=== PATIENT | male | born 1975 | race Caucasian/White ===

== ENCOUNTER 2024-02-01 15:38 | Inpatient (IN) | payer OTHER, BC ==
--- NOTE | 2024-02-01 19:14 | ED ---
Psych HPI - General Chief Complaint: Psychiatric Symptoms Stated Complaint: petition Time Seen by Provider: 02/01/24 15:50 Source: patient, RN notes reviewed Mode of arrival: ambulatory - History of Present Illness Initial Comments: 48-year-old male brought in for evaluation. He is suffering from suicidal thoughts and ideation. He is here on petition with an extensive note. The patient did initially deny any of this however it is well-documented. MD Complaint: suicidal ideation, feels depressed - Related Data Home Medications Medication Instructions Recorded Confirmed Aspirin EC [Ecotrin Low Dose] 81 mg PO DAILY 02/01/24 02/01/24 Atorvastatin [Lipitor] 40 mg PO DAILY 02/01/24 02/01/24 Fenofibrate Nanocrystallized 48 mg PO DAILY 02/01/24 02/01/24 [Fenofibrate] Lisinopril-Hctz 20-12.5 mg 1 tab PO DAILY 02/01/24 02/01/24 [Zestoretic 20-12.5] Pantoprazole [Protonix] 40 mg PO AC-BRKFST 02/01/24 02/01/24 Allergies Allergy/AdvReac Type Severity Reaction Status Date / Time No Known Allergies Allergy Verified 02/01/24 18:12 Review of Systems ROS Statement: Those systems with pertinent positive or pertinent negative responses have been documented in the HPI. ROS Other: All systems not noted in ROS Statement are negative. Past Medical History Past Medical History: Hypertension History of Any Multi-Drug Resistant Organisms: None Reported Past Surgical History: Hernia Repair Additional Past Surgical History / Comment(s): chest sx to remove a growth Past Psychological History: No Psychological Hx Reported Smoking Status: Never smoker Past Alcohol Use History: None Reported Past Drug Use History: None Reported General Exam - General Exam Comments Initial Comments: This is a well-developed well-nourished awake alert oriented x 4 male General appearance: anxious Head exam: Present: atraumatic, normocephalic, normal inspection Eye exam: Present: normal appearance, PERRL, EOMI. Absent: scleral icterus, conjunctival injection, periorbital swelling ENT exam: Present: normal exam, mucous membranes moist Neck exam: Present: normal inspection. Absent: tenderness, meningismus, lymphadenopathy Respiratory exam: Present: normal lung sounds bilaterally. Absent: respiratory distress, wheezes, rales, rhonchi, stridor Cardiovascular Exam: Present: regular rate, normal rhythm, normal heart sounds. Absent: systolic murmur, diastolic murmur, rubs, gallop, clicks GI/Abdominal exam: Present: soft, normal bowel sounds. Absent: distended, tenderness, guarding, rebound, rigid Extremities exam: Present: normal inspection, full ROM, normal capillary refill. Absent: tenderness, pedal edema, joint swelling, calf tenderness Back exam: Present: normal inspection Neurological exam: Present: alert, oriented X3, CN II-XII intact Psychiatric exam: Present: depressed, anxious, suicidal ideation Skin exam: Present: warm, dry, intact, normal color. Absent: rash Course Vital Signs 02/01/24 15:47 Temperature 98.5 F Pulse Rate 85 Respiratory 18 Rate Blood Pressure 148/92 O2 Sat by Pulse 96 Oximetry Medical Decision Making - Medical Decision Making Patient was evaluated by the EPS service and will be a voluntary admission. Was pt. sent in by a medical professional or institution (, PA, PRODUCT SUPPORT ANALYST, urgent care, hospital, or retirement...) When possible be specific @ -No Did you speak to anyone other than the patient for history (EMS, parent, family, police, friend...)? What history was obtained from this source @ -No Did you review nursing and triage notes (agree or disagree)? Why? @ -I reviewed and agree with nursing and triage notes Were old charts reviewed (outside hosp., previous admission, EMS record, old EKG, old radiological studies, urgent care reports/EKG's, retirement records)? Report findings @ -No old charts were reviewed Differential Diagnosis (chest pain, altered mental status, abdominal pain women, abdominal pain men, vaginal bleeding, weakness, fever, dyspnea, syncope, headache, dizziness, GI bleed, back pain, seizure, CVA, palpatations, mental health, musculoskeletal)? @ -Bipolardisorder, major depression EKG interpreted by me (3pts min.). @ -Not Indicated X-rays interpreted by me (1pt min.). @ -None done CT interpreted by me (1pt min.). @ -None done U/S interpreted by me (1pt. min.). @ -None done What testing was considered but not performed or refused? (CT, X-rays, U/S, labs)? Why? @ -None What meds were considered but not given or refused? Why? @ -None Did you discuss the management of the patient with other professionals (professionals i.e. , PA, PRODUCT SUPPORT ANALYST, lab, RT, psych nurse, psychotherapist social worker, dean of admissions, teacher, light armored reconnaissance officer, renal case manager)? Give summary @ -No Was smoking cessation discussed for >3mins.? @ -No Was critical care preformed (if so, how long)? @ -No Were there social determinants of health that impacted care today? How? (Homelessness, low income, unemployed, alcoholism, drug addiction, transportation, low edu. Level, literacy, decrease access to med. care, intermediate, rehab)? @ -No Was there de-escalation of care discussed even if they declined (Discuss DNR or withdrawal of care, Hospice)? DNR status @ -No What co-morbidities impacted this encounter? (DM, HTN, Smoking, COPD, CAD, Cancer, CVA, ARF, Chemo, Hep., AIDS, mental health diagnosis, sleep apnea, morbid obesity)? @ -HTN Was patient admitted / discharged? Hospital course, mention meds given and route, prescriptions, significant lab abnormalities, going to OR and other pertinent info. @ -Hospital course was admitted to this facility Undiagnosed new problem with uncertain prognosis? @ -No Drug Therapy requiring intensive monitoring for toxicity (Heparin, Nitro, Insulin, Cardizem)? @ -No Were any procedures done? @ -No Diagnosis/symptom? @ -[Depression, suicidal ideation Acute, or Chronic, or Acute on Chronic? @ -Acute Uncomplicated (without systemic symptoms) or Complicated (systemic symptoms)? @ -Default Side effects of treatment? @ -No Exacerbation, Progression, or Severe Exacerbation? @ -No Poses a threat to life or bodily function? How? (Chest pain, [place], [place], pneumonia, PE, COPD, DKA, ARF, appy, cholecystitis, CVA, Diverticulitis, Homicidal, Suicidal, threat to staff... and all critical care pts) @ -Yes - Lab Data Lab Results 02/01/24 Range/Units 18:11 SARS-CoV-2 (PCR) Not Detected (Not Detectd) Disposition Clinical Impression: Depression, Suicidal ideation Disposition: TRANSFER TO PSYCH HOSP/UNIT Condition: Fair Referrals: None,Stated [Primary Care Provider] - 1-2 days Time of Disposition: 18:30 Decision Date: 02/01/24 Decision Time: 18:30
[2024-02-01 21:46] LABS: Amphetamine Screen,Urine Not Detected (NotDetected); Barbiturate Screen,Urine Not Detected (NotDetected); Benzodiazepines Screen,Urine Not Detected (NotDetected); Cocaine Screen,Urine Not Detected (NotDetected); Methadone Screen, Urine Not Detected (NotDetected); Opiate Screen,Urine Not Detected (NotDetected); Oxycodone Screen, Urine Not Detected (NotDetected); Phencyclidine Screen,Urine Not Detected (NotDetected); Tricyclic Antidepressant,Urine Not Detected (NotDetected); Urn Cannabinoid Scrn Not Detected (NotDetected)
[2024-02-01] MEDS ORDERED: LORazepam 2 MG/ML INJ IM PRN (21:54)
[2024-02-01] MEDS ORDERED: MAG HYDROX/AL HYDROX/SIMETH 355 ML BOTTLE PO PRN (21:54)
[2024-02-01] MEDS ORDERED: LORazepam 1 MG TAB PO PRN (21:54)
[2024-02-01] MEDS ORDERED: traZODone HCL 100 MG TAB PO PRN (21:54)
[2024-02-01] MEDS ORDERED: MAGNESIUM HYDROXIDE 2,400 MG/30 ML CUP PO PRN (21:54)
[2024-02-02 01:45] LABS: Appearance,Urine Clear (Clear); Bilirubin,Urine Negative (Negative); Blood,Urine Negative (Negative); Color,Urine Light Yellow; Glucose,Urine (UA) Negative (Negative); Ketones,Urine Negative (Negative); Leukocyte Esterase,Urine Negative (Negative); Nitrite,Urine Negative (Negative); PH, Urine 5.5 (5.0-8.0); Protein,Urine Negative (Negative); Specific Gravity,Urine 1.027 (1.001-1.035); Urobilinogen,Urine <2.0 mg/dL (<2.0)
[2024-02-02] MEDS: LISINOPRIL-HCTZ 20-12.5 MG 1 EACH TAB PO SCH (08:22)
[2024-02-02] MEDS: ASPIRIN 81 MG PO SCH (08:22)
[2024-02-02] MEDS: ATORVASTATIN 40 MG TAB PO SCH (08:22)
[2024-02-02] MEDS: FENOFIBRATE 54 MG TAB PO SCH (08:22)
[2024-02-02] MEDS: PANTOPRAZOLE 40 MG TABLET PO SCH (09:27)
[2024-02-02 11:30] LABS: Basophils % (A) 0 %; Eosinophils # (A) 0.1 k/uL (0-0.7); Eosinophils % (A) 1 %; HCT 46.5 % (39.0-53.0); HGB 15.4 gm/dL (13.0-17.5); Lymphocytes # (A) 1.9 k/uL (1.0-4.8); Lymphocytes % (A) 28 %; MCH 28.7 pg (25.0-35.0); MCHC 33.2 g/dL (31.0-37.0); MCV 86.3 fL (80.0-100.0); Mean Platelet Volume 7.4; Monocytes # (A) 0.4 k/uL (0-1.0); Monocytes % (A) 6 %; Neutrophils # (A) 4.2 k/uL (1.3-7.7); Neutrophils % (A) 62 %; Platelet Count 317 k/uL (150-450); RBC 5.39 m/uL (4.30-5.90); RDW 13.6 % (11.5-15.5); WBC 6.8 k/uL (3.8-10.6)
[2024-02-02 11:31] LABS: ALT 58 U/L (4-49); AST 49 U/L (17-59); African American GFR (CKD) >90 (>60 ml/min/1.73 sqM); Albumin 4.9 g/dL (3.5-5.0); Alkaline Phosphatase 60 U/L (38-126); Anion Gap 11 mmol/L; Blood Urea Nitrogen 13 mg/dL (9-20); Calcium 9.9 mg/dL (8.4-10.2); Carbon Dioxide 23 mmol/L (22-30); Chloride 107 mmol/L (98-107); Glucose 112 mg/dL (74-99); Non-African American GFR(CKD) >90 (>60 ml/min/1.73 sqM); Potassium 4.5 mmol/L (3.5-5.1); Sodium 141 mmol/L (137-145); Total Bilirubin 0.7 mg/dL (0.2-1.3); Total Protein 7.5 g/dL (6.3-8.2)
[2024-02-02] MEDS: IBUPROFEN 600 MG TAB PO PRN (15:00)
[2024-02-02 18:47] LABS: Chol/HDL Ratio 4.37 Ratio; LDL Cholesterol,Calculated 99.5 mg/dL (0.0-131.0)
--- NOTE | 2024-02-03 17:21 | P.HP ---
Psychiatric H&P - . H&P Date: 02/03/24 History & Physical: Allergies Allergy/AdvReac Type Severity Reaction Status Date / Time No Known Allergies Allergy Verified 02/01/24 23:41 Vital Signs Temp 98.4 F 02/03/24 06:34 Pulse 81 02/03/24 08:27 Resp 16 02/03/24 06:34 BP 135/84 02/03/24 08:27 Pulse Ox 94 L 02/03/24 06:34 FiO2 Laboratory Last Values WBC 6.8 k/uL (3.8-10.6) 02/02/24 10:06 RBC 5.39 m/uL (4.30-5.90) 02/02/24 10:06 Hgb 15.4 gm/dL (13.0-17.5) 02/02/24 10:06 Hct 46.5 % (39.0-53.0) 02/02/24 10:06 MCV 86.3 fL (80.0-100.0) 02/02/24 10:06 MCH 28.7 pg (25.0-35.0) 02/02/24 10:06 MCHC 33.2 g/dL (31.0-37.0) 02/02/24 10:06 RDW 13.6 % (11.5-15.5) 02/02/24 10:06 Plt Count 317 k/uL (150-450) 02/02/24 10:06 MPV 7.4 02/02/24 10:06 Neutrophils % 62 % 02/02/24 10:06 Lymphocytes % 28 % 02/02/24 10:06 Monocytes % 6 % 02/02/24 10:06 Eosinophils % 1 % 02/02/24 10:06 Basophils % 0 % 02/02/24 10:06 Neutrophils # 4.2 k/uL (1.3-7.7) 02/02/24 10:06 Lymphocytes # 1.9 k/uL (1.0-4.8) 02/02/24 10:06 Monocytes # 0.4 k/uL (0-1.0) 02/02/24 10:06 Eosinophils # 0.1 k/uL (0-0.7) 02/02/24 10:06 Basophils # 0.0 k/uL (0-0.2) 02/02/24 10:06 Sodium 141 mmol/L (137-145) 02/02/24 10:06 Potassium 4.5 mmol/L (3.5-5.1) 02/02/24 10:06 Chloride 107 mmol/L (98-107) 02/02/24 10:06 Carbon Dioxide 23 mmol/L (22-30) 02/02/24 10:06 Anion Gap 11 mmol/L 02/02/24 10:06 BUN 13 mg/dL (9-20) 02/02/24 10:06 Creatinine 0.77 mg/dL (0.66-1.25) 02/02/24 10:06 Est GFR (CKD-EPI)AfAm >90 (>60 ml/min/1.73 sqM) 02/02/24 10:06 Est GFR (CKD-EPI)NonAf >90 (>60 ml/min/1.73 sqM) 02/02/24 10:06 Glucose 112 mg/dL (74-99) H 02/02/24 10:[address] Glu mg/dL 137 mg/dL 02/02/24 10:06 Hemoglobin A1c 6.4 % (<=6.0) H 02/02/24 10:06 Calcium 9.9 mg/dL (8.4-10.2) 02/02/24 10:06 Total Bilirubin 0.7 mg/dL (0.2-1.3) 02/02/24 10:06 AST 49 U/L (17-59) 02/02/24 10:06 ALT 58 U/L (4-49) H 02/02/24 10:06 Alkaline Phosphatase 60 U/L (38-126) 02/02/24 10:06 Total Protein 7.5 g/dL (6.3-8.2) 02/02/24 10:06 Albumin 4.9 g/dL (3.5-5.0) 02/02/24 10:06 Triglycerides 162.00 mg/dL (0.00-149.00) H 02/02/24 10:06 Cholesterol 171.00 mg/dL (0.00-200.00) 02/02/24 10:06 LDL Cholesterol, Calc 99.5 mg/dL (0.0-131.0) 02/02/24 10:06 VLDL Cholesterol, Calc 32.40 mg/dL (5.00-40.00) 02/02/24 10:06 HDL Cholesterol 39.10 mg/dL (40.00-60.00) L 02/02/24 10:06 Cholesterol/HDL Ratio 4.37 Ratio 02/02/24 10:06 TSH 1.680 mIU/L (0.465-4.680) 02/02/24 10:06 Urine Color Light Yellow 02/01/24 18:11 Urine Appearance Clear (Clear) 02/01/24 18:11 Urine pH 5.5 (5.0-8.0) 02/01/24 18:11 Ur Specific [place] 1.027 (1.001-1.035) 02/01/24 18:11 Urine Protein Negative (Negative) 02/01/24 18:11 Urine Glucose (UA) Negative (Negative) 02/01/24 18:11 Urine Ketones Negative (Negative) 02/01/24 18:11 Urine Blood Negative (Negative) 02/01/24 18:11 Urine Nitrite Negative (Negative) 02/01/24 18:11 Urine Bilirubin Negative (Negative) 02/01/24 18:11 Urine Urobilinogen <2.0 mg/dL (<2.0) 02/01/24 18:11 Ur Leukocyte Esterase Negative (Negative) 02/01/24 18:11 Urine Opiates Screen Not Detected (NotDetected) 02/01/24 18:11 Ur Oxycodone Screen Not Detected (NotDetected) 02/01/24 18:11 Urine Methadone Screen Not Detected (NotDetected) 02/01/24 18:11 Ur Barbiturates Screen Not Detected (NotDetected) 02/01/24 18:11 U Tricyclic Antidepress Not Detected (NotDetected) 02/01/24 18:11 Ur Phencyclidine Scrn Not Detected (NotDetected) 02/01/24 18:11 Ur Amphetamines Screen Not Detected (NotDetected) 02/01/24 18:11 U Methamphetamines Scrn Not Detected (NotDetected) 02/01/24 18:11 U Benzodiazepines Scrn Not Detected (NotDetected) 02/01/24 18:11 Urine Cocaine Screen Not Detected (NotDetected) 02/01/24 18:11 U Marijuana (THC) Screen Not Detected (NotDetected) 02/01/24 18:11 SARS-CoV-2 (PCR) Not Detected (Not Detectd) 02/01/24 18:11 02/03/24 17:20 Psychiatric Evaluation Identifying Data: Mr. Holly is a 48 years old, single, white male, who lives in [place], [place] Chief Complaint: Veneer Manufacturer brought me, I had no choice. History of Psychiatric Illness- The patient thinks that his brother petitioned him to the hospital. Patient believes the petition states that he wrote a note stating, I want to kill myself. The patient stated that he has never written a note like that in his entire life. The patient did indicate that once he overdosed on Tylenol leading to 3 days in the hospital. He made attempt after losing money gambling. He states that it was an impulsive act. He denied being depressed then. He denied ever taking psychiatric medications. The patient noted that currently he is under pressure because he wants to finds a better job addie he is doing now but does not feel depressed or suicidal. He is currently helping his brother around the house. His brother is a disabled vet. He came here month and half ago to help his brother. The patient denied any symptoms consistent with depression. Past Psychiatric History: As stated above. Past Medication History: No h/o psychotropic medications. Leading questions: The patient denied Depression and Anxiety. Denied SI or HI. Denied symptoms consistent with psychosis Drugs and alcohol history: The patient denied ever having problems with drugs or alcohol. Tobacco use: None. Past Medical history: HTN, Family History of Psychiatric Disorder: Sister is Bipolar. The patient does not know the details. Social History and Family History: The patient was born and raised in [place], [place]. He grew-up with 6 siblings. He finished HS. Bachelors in Health care administration. 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 OTC: Ibuprofen, Baby Aspirin. Allergies: none as per patient. Objective: MSE: Alert and attentive. Orientation times three Dressed and Groomed: Appropriately. Pleasant and cooperative. Psychomotor Activity: Normal. Speech: Normal in tone, quality, and quantity. Mood: I am good. Affect: Appropriate to the mood. SI or HI: None. Perceptual disturbance: None. Thought Content: No paranoia or other delusional thinking noted. Thought Process: Normal. Cognition: Intact Judgment and Insight: Fair AIMS: Normal Labs: Available labs reviewed. Diagnosis: Depressive disorder, unspecified. Plan and Recommendations: Continue current Medications. Monitor MS and side effects of medications and adjust medications accordingly. Provide supportive psychotherapy and psychoeducation. The patient provided psychoeducation. The patient to attend lu [facility]. Medication Consent with explanation of risk/benefits and side effects: Explained and obtained.
--- NOTE | 2024-02-03 17:22 | P.PN ---
Progress Note - Text Progress Note Date: 02/03/24 Follow-up Mediation Review Chief Complaint: I am distressed but not depressed. Subjective: The patient has no complaints today. He feels fine. The patient asked about the information provided by his brother about his serious suicidal attempt in the past and repeated threats of recent suicidal statements and risky driving. The patient laughed and said, I dont know where is he coming from, we argue but never any statement for hurting myself, one time I stopped in the middle of the intersection because I passed the stop sign, I am fine. The patient noted that he made one attempt after losing money gambling but was not serious. He took overdose of Tylenol. His liver enzymes were slightly high. He was not in ICU. The patient had reported this attempt yesterday during psychiatric evaluation. It happened 25 years ago. He stated that his brother has physical issues. He further stated that their family is emotional and argue a lot but have very supportive of each other. 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 The patient has not been noticed being depressed. He is usually cheerful and interacts with peers and staff well. The patient declined to sign medication consent. The patient has been attending the groups. The participation is good. The int eraction with staff and peers is good. The patient is compliant with treatment recommendations. Leading questions: The patient denied Depression and Anxiety. Denied SI or HI. Denied symptoms consistent with psychosis Sleep and Appetite: Good. Change in family/ living/job/financial/daily routine: No change. Change in medical condition: No change. Change in medications: No change. Side effects from Medications: None. Allergies: No change. Objective- MSE: Alert and attentive. Orientation times three. Dressed and Groomed: Appropriately. Pleasant and cooperative. Psychomotor Activity: Normal. Speech: Normal in tone, quality, and quantity. Mood: I am fine. Affect: Appropriate to mood. SI or HI: None. Perceptual disturbance: None. Thought Content: No paranoia or other delusional thinking noted. Thought Process: Normal. Cognition: Intact Judgment and Insight: Fair. AIMS: Normal. Labs: No new labs. Diagnosis: No change. Plan and Recommendations: Continue current Medications. Monitor MS and side effects of medications and adjust medications accordingly. Provide supportive psychotherapy. Smoke cessation therapy. The patient to attend lu activities. CBC with Diff, CMP, TSH, Lipid Profile, HbA1c, EKG. Medication Consent with explanation of risk/benefits and side effects: Explained and obtained.
--- NOTE | 2024-02-04 10:49 | P.PN ---
Progress Note - Text Progress Note Date: 02/04/24 Follow-up Mediation Review Chief Complaint: I am fine. Subjective: The patient feels the same. He has no complaints. He had a nice cheese omelet breakfast. He is getting ready to go to group. He was in good spirits. He is compliant with his medications except psychiatric medications. He does not feel the need to take them. The patient has been attending the groups. The participation is good. The interaction with staff and peers is good. The patient is compliant with treatment recommendations. Leading questions: The patient denied Depression and Anxiety. Denied SI or HI. Denied symptoms consistent with psychosis Sleep and Appetite: Good. Change in family/ living/job/financial/daily routine: No change. Change in medical condition: No change. Change in medications: No change. Side effects from Medications: None. Allergies: No change. Objective- MSE: Alert and attentive. Orientation times three. Dressed and Groomed: Appropriately. Pleasant and cooperative. Psychomotor Activity: Normal. Speech: Normal in tone, quality, and quantity. Mood: I am fine. Affect: Appropriate to mood. SI or HI: None. Perceptual disturbance: None. Thought Content: No paranoia or other delusional thinking noted. Thought Process: Normal. Cognition: Intact Judgment and Insight: Fair. AIMS: Normal. Labs: No new labs. Diagnosis: No change. Plan and Recommendations: Continue current Medications. Monitor MS and side effects of medications and adjust medications accordingly. Provide supportive psychotherapy. Smoke cessation therapy. The patient to attend lu activities. CBC with Diff, CMP, TSH, Lipid Profile, HbA1c, EKG. Medication Consent with explanation of risk/benefits and side effects: Explained and obtained.
[2024-02-05] MEDS: DIVALPROEX SPRINKLE 125 MG CAP.SPRINK PO STA (12:18)
--- NOTE | 2024-02-05 15:44 | P.CONS ---
History of Present Illness - Reason for Consult Consult date: 02/05/24 - History of Present Illness 48 year old M with PMH of GERD, HTN, HLD presents to the ED for mental health concerns. [facility] has been consulted for medical management of this patient. CBC, CMP, A1c, Lipid panel, TSH, UA, UDS, COVID test reviewed significant for glucose of 112, A1c 6.4, ALT 58, TG 162, HDL 39.1. Current vital signs BP 124/73, HR 68, T 97.9F, 95% on RA. He reports some arthritic pain which he attributes to his obesity. He reports post nasal drip that leads to cough and wheezing at night. Non drinker. No smoking. No illicit drugs. General: non toxic, no distress, appears at stated age Derm: warm, dry Head: atraumatic, normocephalic, symmetric Eyes: EOMI, no lid lag, anicteric sclera Mouth: no lip lesion, mucus membranes moist Cardiovascular: S1S2 reg, no murmur Lungs: CTA bilateral, no rhonchi, no rales , no accessory muscle use Ext: no gross muscle atrophy, no edema, no contractures Neuro: CN II-XII grossly intact. No focal neurologic deficits. Based on my assessment of this patient, this patient meets a moderate complexity level of care. New onset Pre-DM: A1c 6.4. Advised lifestyle modifications and weight loss. Start Metformin 500 mg PO BID. Post nasal drip with allergic rhinitis: Start Claritin 10 mg PO QD and Flonase 2 sprays daily. Transaminitis: Mildly elevated. Unknown significance. Outpatient workup with PCP. Hypertenion: Lisinopril 20 mg PO QD. HCTZ 12.5 mg PO QD. Dyslipidemia: Lipid panel as above. Fenofibrate 54 mg PO QD. Lipitor 40 mg PO QD. GERD: Protonix 40 mg PO QD. Morbid Obesity: Advised weight loss. CODE STATUS: FULL CODE DVT Prophylaxis: Early ambulation. GI Prophylaxis: Protonix PO. I have reviewed the following design center consultant notes: Psyc note. I have reviewed the results of the following tests: As above. I have ordered the following tests: I have discussed the care of this patient with the following independent historian: I have independently interpreted the following test below: I have discussed the management of this patient with the following physician: I have seen and evaluated the patient today along side the resident. Past Medical History Past Medical History: GERD/Reflux, Hyperlipidemia, Hypertension History of Any Multi-Drug Resistant Organisms: None Reported Past Surgical History: Hernia Repair Additional Past Surgical History / Comment(s): chest sx to remove a growth Past Anesthesia/Blood Transfusion Reactions: No Reported Reaction Smoking Status: Never smoker Medications and Allergies Home Medications Medication Instructions Recorded Confirmed Type Aspirin EC [Ecotrin Low Dose] 81 mg PO DAILY 02/01/24 02/01/24 History Atorvastatin [Lipitor] 40 mg PO DAILY 02/01/24 02/01/24 History Fenofibrate Nanocrystallized 48 mg PO DAILY 02/01/24 02/01/24 History [Fenofibrate] Lisinopril-Hctz 20-12.5 mg 1 tab PO DAILY 02/01/24 02/01/24 History [Zestoretic 20-12.5] Pantoprazole [Protonix] 40 mg PO AC-BRKFST 02/01/24 02/01/24 History Allergies Allergy/AdvReac Type Severity Reaction Status Date / Time No Known Allergies Allergy Verified 02/01/24 23:41 Physical Exam Vitals: Vital Signs Temp Pulse Resp BP Pulse Ox 02/05/24 06:12 97.9 F 68 17 124/73 95 Results CBC & Chem 7: 02/02/24 10:06 02/02/24 10:06
--- NOTE | 2024-02-05 16:49 | P.PN ---
Progress Note - Text Progress Note Date: 02/05/24 Follow-up Mediation Review Chief Complaint: I am fine. Subjective: The patient feels the same. He has no complaints. The patient was gently confronted with the note given by his family to the nursing staff. The noted indicated that he has made suicidal threats to his brother and mother. The patient noted that he has no recollection of these threats. He did accept getting very angry suddenly and throwing a temper tantrum. The patient was explained that this could be Impulse control disorder just like indulging in gambling. The patient accepted that this could be a problem and wished he knew about this before. He accepted to take medication to address this problem as well go for anger management classes. He was explained different medications. He agreed and consented for Depakote. Meeting with brother and then with brother and patient was conducted with neonatal social worker. He has been complaint with medications. The patient has been attending the groups. The participation is good. The interaction with staff and peers is good. The patient is compliant with treatment recommendations. Leading questions: The patient denied Depression and Anxiety. Denied SI or HI. Denied symptoms consistent with psychosis Sleep and Appetite: Good. Change in family/ living/job/financial/daily routine: No change. Change in medical condition: No change. Change in medications: No change. Side effects from Medications: None. Allergies: No change. Objective- MSE: Alert and attentive. Orientation times three. Dressed and Groomed: Appropriately. Pleasant and cooperative. Psychomotor Activity: Normal. Speech: Normal in tone, quality, and quantity. Mood: I am fine. Affect: Appropriate to mood. SI or HI: None. Perceptual disturbance: None. Thought Content: No paranoia or other delusional thinking noted. Thought Process: Normal. Cognition: Intact Judgment and Insight: Fair. AIMS: Normal. Labs: No new labs. Diagnosis: No change. Plan and Recommendations: Continue current Medications. Monitor MS and side effects of medications and adjust medications accordingly. Provide supportive psychotherapy. Smoke cessation therapy. The patient to attend lu activities. CBC with Diff, CMP, TSH, Lipid Profile, HbA1c, EKG. Medication Consent with explanation of risk/benefits and side effects: Explained and obtained.
[2024-02-05] MEDS: LORATADINE 10 MG TAB PO SCH (16:50)
[2024-02-05] MEDS: metFORMIN 500 MG TAB PO SCH (16:50)
[2024-02-05] MEDS: FLUTICASONE NASAL 50MCG/SPRAY 16GM BTL EA NOSTRIL SCH (17:44)
[2024-02-05] MEDS ORDERED: DIVALPROEX ER 250 MG TAB.ER.24H PO SCH (21:00)
[2024-02-05] MEDS: DIVALPROEX ER 250 MG TAB.ER.24H PO SCH (21:02)
--- NOTE | 2024-02-06 15:29 | P.PN ---
Progress Note - Text Progress Note Date: 02/06/24 Interval history: Patient was seen wandering the hallways and was directable and agreeable to speak with justowriter operator. Patient states that his mood is "good ". He is jovial and insightful of his condition. He expresses understanding of the need to exercise to improve his health condition. also discussed recommendation to speak with PCP regarding sleep study outpatient. After discussion of risks, benefits, side effects, and alternatives, patient expresses understanding of the impact of Depakote on metabolism and other numerous side effects. He states that he has noticed that his mood has calmed down and that he has not seen feeling irritable since being on the medication. He would like to continue with this. He endorses noticing some minor daytime sedation with Depakote but is observed to be interacting on the milieu. He reports good sleep last night without needing trazodone PRN. He endorses good appetite and energy. At this time patient denies any suicidal or homicidal ideations intent or plan. Denies any Auditory or visual hallucinations. Patient denies any other side effects from the medications and has been compliant with meds. Mental status exam: General Appearance: Patient appears to be stated age is alert, directable, and cooperative. Behavior: No agitated behavior. Patient is calm and directable. Pleasant Speech: Patient's speech is fluent and nonpressured. Mood/Affect: Mood is improving, affect is congruent. Suicidality/Homicidality: Patient denies having any suicidal or homicidal ideation intent or plan. Perceptions: Patient denies any auditory or visual hallucinations. Though content/process: There is no evidence of any delusional thought content and thought process is linear and goal-directed. Initiated humor Memory and concentration: AOX3, grossly intact for the purposes of this session Judgment and insight: improving mildly Assessment/Plan: Continue with current diagnosis. Patient continues to meet criteria for inpatient psychiatric admission for symptom stabilization and safety. Patient will be maintained on current psychotropic medication regimen. Monitor for medication compliance and for any psychotropic medication side effects. Will continue to monitor ongoing response to treatment. Encouraged participation in milieu.
[2024-02-06] MEDS: DIVALPROEX SPRINKLE 125 MG CAP.SPRINK PO SCH (21:00)
--- NOTE | 2024-02-07 10:45 | P.PN ---
Progress Note - Text Progress Note Date: 02/07/24 Interval history: Patient was seen wandering the hallways and was directable and agreeable to speak with marketing writer. Patient states that his mood is "good ". He is jovial and insightful of his condition. He states that he is looking forward to attending his niece's wedding in March and also celebrating his 49th birthday this year. He is excited to be seeing his family again. Patient is more future oriented and denies any safety concerns. Reports tolerating the medications well and would like to be continued on the Depakote. He reports sleeping well at night without needing the trazodone. He denies daytime sedation today. He endorses good appetite and energy. At this time patient denies any suicidal or homicidal ideations intent or plan. Denies any Auditory or visual hallucinations. Patient denies any other side effects from the medications and has been compliant with meds. Mental status exam: General Appearance: Patient appears to be stated age is alert, directable, and cooperative. Behavior: No agitated behavior. Patient is calm and directable. Pleasant Speech: Patient's speech is fluent and nonpressured. Mood/Affect: Mood is euthymic, affect is congruent. Suicidality/Homicidality: Patient denies having any suicidal or homicidal ideation intent or plan. Perceptions: Patient denies any auditory or visual hallucinations. Though content/process: There is no evidence of any delusional thought content and thought process is linear and goal-directed. Initiating humor Memory and concentration: AOX3, grossly intact for the purposes of this session Judgment and insight: improving mildly Assessment/Plan: Continue with current diagnosis. Patient continues to meet criteria for inpatient psychiatric admission for symptom stabilization and safety. Patient will be maintained on current psychotropic medication regimen. Monitor for medication compliance and for any psychotropic medication side effects. Will continue to monitor ongoing response to treatment. Encouraged participation in milieu. Consider for discharge tomorrow, pending continued clinical improvement.
[2024-02-07] MEDS: ACETAMINOPHEN TAB 325 MG TAB PO PRN (19:16)
[2024-02-08 07:02] VITALS: BP 118/80; PULSE 98; RESP 16; TEMP 97.6
--- NOTE | 2024-02-08 13:23 | P.DS ---
Providers Date of admission: 02/01/24 21:49 Expected date of discharge: 02/08/24 Attending physician: Luis Fernando Stahl MD Consults: 02/01/24 21:54 Consult Physician Routine Consulting Provider: Sajan Queen Consult Reason/Comments: H&P and medical Do you want consulting provider notified?: Yes Primary care physician: Stated None - Discharge Diagnosis(es) (1) Impulse control disorder in adult Current Visit: Yes Status: Acute Priority: High Hospital Course: Discharge Summary HPI: Identifying Data: Mr. Holly is a 48 years old, single, white male, who lives in [place], [place] Chief Complaint: Service Greeter brought me, I had no choice. History of Psychiatric Illness- The patient thinks that his brother petitioned him to the hospital. Patient believes the petition states that he wrote a note stating, I want to kill myself. The patient stated that he has never written a note like that in his entire life. The patient did indicate that once he overdosed on Tylenol leading to 3 days in the hospital. He made attempt after losing money gambling. He sta gris that it was an impulsive act. He denied being depressed then. He denied ever taking psychiatric medications. The patient noted that currently he is under pressure because he wants to finds a better job addie he is doing now but does not feel depressed or suicidal. He is currently helping his brother around the house. His brother is a disabled vet. He came here month and half ago to help his brother. The patient denied any symptoms consistent with depression. Past Psychiatric History: As stated above. Past Medication History: No h/o psychotropic medications. Leading questions: The patient denied Depression and Anxiety. Denied SI or HI. Denied symptoms consistent with psychosis Drugs and alcohol history: The patient denied ever having problems with drugs or alcohol. Tobacco use: None. Past Medical history: HTN, Hospital Course: After admission, the patient was involved in pharmacotherapy, lu milieu, and individual psychodynamic psychotherapy. The patient initially declined to take any medications stating that he is distressed not depressed. Later, he accepted to take Depakote for Impulse control disorder. The dose was titrated to obtain the desire effects. The patient tolerated medications well without any side effects. The patient was also involved in lu activities. The patient attended the groups and participated well. The patient interacted with peers and staff well. The patient slowly started showing improvement. The hospital course was uneventful. The patient symptoms of depression, suicidal and homicidal ideations abated. The psychosis improved. The patient was stable to be discharged to out- patient care. The patient did not have any guns or weapons in possession at home. MSE: Alert and attentive. Orientation times three Dressed and Groomed: Appropriately. Pleasant and cooperative. Psychomotor Activity: Normal. Speech: Normal in tone, quality, and quantity. Mood: I am good. Affect: Appropriate to the mood. SI or HI: None. Perceptual disturbance: None. Thought Content: No paranoia or other delusional thinking noted. Thought Process: Normal. Cognition: Intact Judgment and Insight: Fair AIMS: Normal Diagnosis: Impulse Control Disorder H/O Adjustment disorder with depression. Plan: The patient to be discharged today. The patient has attained good improvement since admission. He is stable to be followed as an outpatient. The patient is not suicidal or Homicidal. He does not pose any harm to self or others. The patient remains at a greater risk of self-harm or harm to others than general population on a chronic basis due to psychiatric illness and substance abuse. The patient will continue taking following medication post discharge. The importance of medication compliance and maintaining regular appointments at psychiatric out-pt and PCP clinic was explained and encouraged. upkeep worker to arrange for and conduct family meeting to ensure safety upon discharge and answer any questions. The social services specialist to arrange for patients follow-up appointments at [facility] for psychiatric care along with follow-up with PCP. The patient provided psychoeducation. Advised to call 911 or go to nearest ED or call this hospital in case of acute worsening of symptomatology, severe side effects or having suicidal, homicidal thoughts and feeling unsafe at home. Patient Condition at Discharge: Fair Plan - Discharge Summary Discharge Rx Participant: No New Discharge Prescriptions: New Divalproex Sprinkle [Depakote Sprinkle] 250 mg PO BID 15 Days #30 cap metFORMIN HCL [Glucophage] 500 mg PO BID-W/MEALS 15 Days #30 tab Divalproex [Depakote] 250 mg PO BID 15 Days #30 tab Loratadine [Claritin] 10 mg PO DAILY tab Continue Lisinopril-Hctz 20-12.5 mg [Zestoretic 20-12.5] 1 tab PO DAILY Atorvastatin [Lipitor] 40 mg PO DAILY Pantoprazole [Protonix] 40 mg PO AC-[id number] Aspirin EC [Ecotrin Low Dose] 81 mg PO DAILY Fenofibrate Nanocrystallized [Fenofibrate] 48 mg PO DAILY Discharge Medication List Aspirin EC [Ecotrin Low Dose] 81 mg PO DAILY 02/01/24 [History] Atorvastatin [Lipitor] 40 mg PO DAILY 02/01/24 [History] Fenofibrate Nanocrystallized [Fenofibrate] 48 mg PO DAILY 02/01/24 [History] Lisinopril-Hctz 20-12.5 mg [Zestoretic 20-12.5] 1 tab PO DAILY 02/01/24 [History] Pantoprazole [Protonix] 40 mg PO AC-BRKFST 02/01/24 [History] Divalproex Sprinkle [Depakote Sprinkle] 250 mg PO BID 15 Days #30 cap 02/08/24 [Rx] Divalproex [Depakote] 250 mg PO BID 15 Days #30 tab 02/08/24 [Rx] Loratadine [Claritin] 10 mg PO DAILY tab 02/08/24 [Rx] metFORMIN HCL [Glucophage] 500 mg PO BID-W/MEALS 15 Days #30 tab 02/08/24 [Rx] Follow up Appointment(s)/Referral(s): [facility] [Outside] - 02/09/24 9:00 am ( 02/08 at 9am with Intake Dept) [facility] - [facility] Week Patient Instructions/Handouts: Depression (DC) Discharge Disposition: HOME SELF-CARE
[2024-02-08] MEDS ORDERED: DIVALPROEX 250 MG TABLET.DR PO SCH (21:00)
== END 2024-02-08 15:13 | disposition home or self-care (01) | DRG 883 ==
LOC: EC 15:38 → 3MHU 21:49
PROVIDERS: ADMIT Psychiatry & Neurology Psychiatry; ATTEND Psychiatry & Neurology Psychiatry
DX: F63.89 Other impulse disorders (principal); Z68.41 Body mass index [BMI] 40.0-44.9, adult; R45.851 Suicidal ideations; E66.9 Obesity, unspecified; E78.5 Hyperlipidemia, unspecified; F32.A Depression, unspecified; I10 Essential (primary) hypertension; R09.82 Postnasal drip; F41.9 Anxiety disorder, unspecified; Z79.82 Long term (current) use of aspirin; Z79.899 Other long term (current) drug therapy; Z87.19 Personal history of other diseases of the digestive system
CPT/HCPCS: 80053; 80061; 80306; 81003; 82075; 83036; 84443; 85025; 87635; 99285